=== PATIENT | female | born 1945 | race Caucasian/White ===

== ENCOUNTER 2016-11-27 12:00 | Day surgery (SDC) | payer OTHER, BC ==
[~2016-11-27] VITALS: Ht 154.9 cm; Wt 61.7 kg
[~2016-11-27 12:00] MED LIST: BALANCE B-501 EAC1 PO; BIOTIN 5000MCG PO; CALCIUM WITH M1 EAC2 PO; CLARITIN,ALAVAR10 MG PO; COMPLETE SENIO1 EACH PO; CRANBERRY500 M3 PO; DEPAKOTE250 MG PO; DEPAKOTE500 MG PO; FLEXERIL5 MG PO; FLOVENT 11120 INHALA IH; GLUCOSAMINE1000 MG PO; HYALURONIC ACI1 EACH PO; LITTLE REMEDIE118 M1 PO; LO-DOSE ASPIRIN81 M1 PO; METAMUCIL0.4 GM PO; OMEGA 3-6-9 11200 MG PO; TOPROL XL25 MG PO; XOPENEX HF200 INHALA IH; ZOCOR10 MG PO
[2016-11-27 12:52] VITALS: BP 152/67
[2016-11-27 12:53] LABS: HEMATOCRIT 33.9 % (36.0-46.0); MCV 99.4 FL (83-99)
[2016-11-27 13:07] LABS: CHLORIDE 114 mEq/L (99-109); POTASSIUM 3.9 mEq/L (3.7-5.4); SODIUM 144 mEq/L (136-147)
[2016-11-27 13:09] LABS: GLUCOSE 89 mg/dL (70-99)
[2016-11-27 13:10] LABS: ANION GAP 13 MEQ/L (2-14)
[2016-11-27 13:13] LABS: GFR ESTIMATE (CALCULATED) 17 mL/min/
[2016-11-27 13:14] LABS: UREA NITROGEN (BUN) 68 mg/dL (9-23)
[2016-11-27 14:10] LABS: METH RESISTANT S AUREUS PCR NEGATIVE (NEGATIVE)
[2016-11-27 14:11] LABS: PROBE CHECK PASS; SPECIMEN PROCESSING CONTROL PASS
[2016-11-27] MEDS ORDERED: ULTRAM50 MG PO (18:45)
[2016-11-27 19:25] VITALS: BP 131/60
[2016-11-27 20:25] VITALS: BP 134/60
== END 2016-11-27 20:50 | disposition home or self-care (01) ==
LOC: SDC 12:00
PROVIDERS: Surgery
PROC: 03160JF Bypass Left Axillary Artery to Lower Arm Vein with Synthetic Substitute, Open Approach (ICD-10-PCS; principal; 2016-11-27)
DX: I12.0 Hypertensive chronic kidney disease with stage 5 chronic kidney disease or end stage renal disease (principal); N18.6 End stage renal disease; E78.5 Hyperlipidemia, unspecified; D63.1 Anemia in chronic kidney disease; J45.909 Unspecified asthma, uncomplicated; I49.3 Ventricular premature depolarization; I34.1 Nonrheumatic mitral (valve) prolapse; Z86.14 Personal history of Methicillin resistant Staphylococcus aureus infection; Z85.828 Personal history of other malignant neoplasm of skin; M85.80 Other specified disorders of bone density and structure, unspecified site; M47.9 Spondylosis, unspecified; M19.90 Unspecified osteoarthritis, unspecified site; F31.9 Bipolar disorder, unspecified; Z96.651 Presence of right artificial knee joint; Z79.82 Long term (current) use of aspirin; Z88.0 Allergy status to penicillin; Z88.1 Allergy status to other antibiotic agents; Z88.7 Allergy status to serum and vaccine; Z88.5 Allergy status to narcotic agent; Z88.8 Allergy status to other drugs, medicaments and biological substances; Z91.013 Allergy to seafood; Z91.09 Other allergy status, other than to drugs and biological substances; Z84.1 Family history of disorders of kidney and ureter; Z82.49 Family history of ischemic heart disease and other diseases of the circulatory system; Z80.0 Family history of malignant neoplasm of digestive organs; Z82.5 Family history of asthma and other chronic lower respiratory diseases; Z81.8 Family history of other mental and behavioral disorders
CPT/HCPCS: 80048; 85014; 85018; 87641; C1768; C2628; J0690; J1644; J3010; Q0175

== ENCOUNTER 2017-08-07 07:45 | Day surgery (SDC) | payer OTHER, BC ==
[~2017-08-07] VITALS: Ht 154.9 cm; Wt 60.9 kg
[~2017-08-07 07:45] MED LIST changes: +OXYBUTYNIN CHLO10 MG PO; +SOD CITRATE-CI473 ML PO; +ULTRAM50 MG PO
[2017-08-07 08:34] VITALS: BP 148/65
[2017-08-07 09:21] LABS: HEMATOCRIT 26.1 % (36.0-46.0); HEMOGLOBIN 8.4 G/DL (11.9-15.5); MCH 32.1 PG (29.0-34.0); MCHC 32.2 G/DL (30.0-36.0); MCV 99.6 FL (83-99); PLATELET COUNT 368 K/uL (156-360); RBC DIS.WIDTH-CV 13.7 % (11.8-14.6); RBC DIS.WIDTH-SD 49.7 % (39-53); RED BLOOD COUNT 2.62 M/uL (3.80-5.20); WHITE BLOOD COUNT 10.7 K/uL (4.1-10.2)
[2017-08-07 09:53] LABS: CHLORIDE 113 MEQ/L (99-109); GFR ESTIMATE (CALCULATED) 16 mL/min/; GLUCOSE 99 mg/dL (70-99); POTASSIUM 4.1 MEQ/L (3.7-5.4); SODIUM 143 MEQ/L (136-147); UREA NITROGEN (BUN) 75 mg/dL (9-23)
[2017-08-07 10:04] LABS: ABS NEUTROPHIL COUNT 8.6; ATYPICAL LYMPHOCYTE 0.9 %; BAND NEUTROPHILS 0.8 % (0-8.0); EOSINOPHIL ABS CT 0.3; EOSINOPHILS 2.6 % (0-5.0); LYMPHOCYTES 7.8 % (15.0-45.0); METAMYELOCYTES 0.9 %; MONOCYTES 3.5 % (0-9.0); MYELOCYTES 3.5 %; NUCLEATED RBC'S 0.9; PLAT.SUFFICIENCY ADEQUATE; SMUDGE CELLS 2.6
== END 2017-08-07 14:40 | disposition home or self-care (01) ==
LOC: SDC 07:45 → 2SOUTH 07:46 → 2EASTP 07:46 → SDC 11:16 → 2EASTP 14:40 → SDC 15:06
PROVIDERS: Physician Assistant
DX: T82.858A Stenosis of other vascular prosthetic devices, implants and grafts, initial encounter (principal); I12.9 Hypertensive chronic kidney disease with stage 1 through stage 4 chronic kidney disease, or unspecified chronic kidney disease; N18.9 Chronic kidney disease, unspecified; M19.90 Unspecified osteoarthritis, unspecified site; E78.5 Hyperlipidemia, unspecified; J45.909 Unspecified asthma, uncomplicated; F31.9 Bipolar disorder, unspecified; Z85.828 Personal history of other malignant neoplasm of skin; M85.80 Other specified disorders of bone density and structure, unspecified site; Z88.8 Allergy status to other drugs, medicaments and biological substances
CPT/HCPCS: 80048; 85025; 93005; C1725; C1757; C1769; C1874; C1894; G0378; J1644; J3010; J7040

== ENCOUNTER 2017-09-12 06:13 | Day surgery (SDC) | payer OTHER, BC ==
[~2017-09-12] VITALS: Ht 154.9 cm; Wt 61.8 kg
[2017-09-12 06:41] VITALS: BP 134/62
[2017-09-12 07:22] LABS: BASOPHIL (%) 0.3 % (0-1); EOSINOPHIL (%) 2.3 % (0-5); EOSINOPHIL COUNT 0.2 K/uL (0-0.3); HEMATOCRIT 32.9 % (36.0-46.0); HEMOGLOBIN 10.4 G/DL (11.9-15.5); IMMATURE GRANULOCYTE (%) 1.4 % (0.0-0.7); LYMPHOCYTE COUNT 1.4 K/uL (1.0-2.8); MCH 32.2 PG (29.0-34.0); MCHC 31.6 G/DL (30.0-36.0); MCV 101.9 FL (83-99); MONOCYTE (%) 15.1 % (3-12); MONOCYTE COUNT 1.1 K/uL (0-0.8); NEUTROPHIL (%) 61.9 % (45-76); NEUTROPHIL COUNT 4.6 K/uL (1.8-6.4); PLATELET COUNT 260 K/uL (156-360); RBC DIS.WIDTH-CV 15.5 % (11.8-14.6); RBC DIS.WIDTH-SD 57.3 % (39-53); RED BLOOD COUNT 3.23 M/uL (3.80-5.20); WHITE BLOOD COUNT 7.4 K/uL (4.1-10.2)
[2017-09-12 07:49] LABS: CHLORIDE 104 MEQ/L (99-109); CREATININE 3.7 MG/DL (0.6-1.3); GFR ESTIMATE (CALCULATED) 13 mL/min/; GLUCOSE 88 mg/dL (70-99); POTASSIUM 4.4 MEQ/L (3.7-5.4); SODIUM 137 MEQ/L (136-147); UREA NITROGEN (BUN) 79 mg/dL (9-23)
[2017-09-12 11:53] VITALS: BP 144/63
== END 2017-09-12 14:05 | disposition home or self-care (01) ==
LOC: SDC 06:13 → 2EAST 06:14 → ENRESERV 06:15 → 2EAST 14:05
PROVIDERS: Surgery
DX: T82.868A Thrombosis due to vascular prosthetic devices, implants and grafts, initial encounter (principal); T82.858A Stenosis of other vascular prosthetic devices, implants and grafts, initial encounter; I12.0 Hypertensive chronic kidney disease with stage 5 chronic kidney disease or end stage renal disease; N18.6 End stage renal disease; Z99.2 Dependence on renal dialysis; J45.909 Unspecified asthma, uncomplicated; E03.9 Hypothyroidism, unspecified; M19.90 Unspecified osteoarthritis, unspecified site; Z79.82 Long term (current) use of aspirin; Z88.0 Allergy status to penicillin; Z88.2 Allergy status to sulfonamides; Z88.8 Allergy status to other drugs, medicaments and biological substances; Z91.048 Other nonmedicinal substance allergy status; Z91.013 Allergy to seafood
CPT/HCPCS: 80048; 85025; C1725; C1757; C1769; C1874; C1894; G0378; J1644; J3010; J7040